=== PATIENT | female | born 1960 | race Caucasian/White ===

== ENCOUNTER 2019-11-09 21:03 | Inpatient (IN) | payer OTHER ==
[~2019-11-09] VITALS: Ht 167.6 cm; Wt 68.0 kg
[2019-11-09 21:05] VITALS: BP 219/106
[2019-11-09 21:55] LABS: ABSOLUTE NEUTROPHILS 5.4 thou/uL (1.4-8.2); BASOPHILS 1.2 % (0.0-2.0); EOSINOPHILS 1.5 % (0.0-3.0); HEMATOCRIT 45.5 % (37.0-47.0); HEMOGLOBIN 14.9 gm/dL (12.0-15.0); LYMPHOCYTES 36.4 % (24.0-44.0); MCH 29.5 pg (26.0-34.0); MCHC 32.7 g/dL (28.0-37.0); MCV 90.1 fL (80.0-100.0); MONOCYTES 5.4 % (1.0-8.0); PLATELET COUNT 275 thou/uL (150-400); POLYS 55.5 % (36.0-66.0); RBC 5.06 mil/uL (4.20-5.00); WBC 9.7 thou/uL (4.0-11.0)
[2019-11-09 22:13] LABS: ANION GAP 12 mmol/L (7-16); BUN 8 mg/dL (7-18); CALCIUM 9.9 mg/dL (8.5-10.1); CHLORIDE 103 mmol/L (98-107); CO2 27 mmol/L (21-32); CREATININE 0.9 mg/dL (0.6-1.0); GLUCOSE 112 mg/dL (74-106); POTASSIUM 3.1 mmol/L (3.5-5.1); SODIUM 142 mmol/L (136-145)
[2019-11-09 22:19] LABS: ALBUMIN 4.4 g/dL (3.4-5.0); SGOT 22 U/L (15-37); SGPT 25 U/L (30-65); TOTAL BILIRUBIN 0.6 mg/dL (<0.1-1.0); TROPONIN-I <0.06 ng/mL (<0.06)
--- NOTE | 2019-11-09 22:36 | NUR ---
SEIZURE PADS PLACED TO BEDRAILS
[2019-11-10 00:15] LABS: BE(vivo) 0.3 mmol/L (-2 to +3); HCO3 26.8 mmol/L (22.0-26.0); PCO2 50.3 mmHg (35.0-45.0); PO2 165.7 mmHg (80.0-100.0); pH 7.344 (7.360-7.450)
[2019-11-10 00:22] VITALS: BP 165/76
[2019-11-10 01:00] VITALS: BP 125/64
[2019-11-10 01:13] VITALS: BP 157/76
[2019-11-10] MEDS ORDERED: VERAPAMIL ER240 M1 PO (01:32)
[2019-11-10] MEDS ORDERED: OMEPRAZOLE40 MG PO (01:32)
[2019-11-10] MEDS ORDERED: TRAZODONE 150150 M1 PO (01:34)
[2019-11-10] MEDS ORDERED: WELLBUTRIN XL300 MG PO (01:37)
[2019-11-10] MEDS ORDERED: AZELASTINE137 MCG/0. SPRAY (01:39)
[2019-11-10] MEDS ORDERED: PROZAC20 M1 PO (01:45)
[2019-11-10 05:49] LABS: ANION GAP 7 mmol/L (7-16); BUN 9 mg/dL (7-18); CHLORIDE 105 mmol/L (98-107); CHOLESTEROL 192 mg/dL (<200); CO2 29 mmol/L (21-32); CREATININE 0.8 mg/dL (0.6-1.0); GLUCOSE 109 mg/dL (74-106); HDL CHOLESTEROL 48 mg/dL (>40); LDL CHOLESTEROL 132 mg/dL (<100); POTASSIUM 3.9 mmol/L (3.5-5.1); SODIUM 141 mmol/L (136-145); TRIGLYCERIDE 63 mg/dL (<150); TROPONIN-I <0.06 ng/mL (<0.06); VLDL 13 mg/dL (<40)
[2019-11-10 06:06] LABS: SERUM ASSESSMENT Clear
--- NOTE | 2019-11-10 08:19 | EKG ---
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 : 1960 Requested By: Elvia Bob Order Number: [id number] MD: Prosper Santoro Measurements Intervals [place] Rate: 67 P: 35 TN: 141 QRS: 43 QRSD: 97 T: 44 QT: 471 QTc: 498 Interpretive Statements Sinus rhythm Nonspecific ST depression Borderline prolonged QT interval No previous ECG available for comparison Electronically Signed On 11-10-2019 8:18:44 MANAGER [employer]ALITY COMPLIANCE by Prosper Santoro [email or web address] <ELECTRONICALLY SIGNED> By: Prosper Santoro MD, FAC 11/10/19 0818 05 05 Prosper Santoro MD, [facility] /EPI
--- NOTE | 2019-11-10 08:20 | EKG ---
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 : 1960 Requested By: Elvia Bob Order Number: [id number] MD: Prosper Santoro Measurements Intervals [place] Rate: 102 P: 27 OR: 144 QRS: 51 QRSD: 96 T: 51 QT: 407 QTc: 531 Interpretive Statements Sinus tachycardia Minimal ST depression, inferior leads Prolonged QT interval No previous ECG available for comparison Electronically Signed On 11-10-2019 8:19:39 [employer] by Prosper Santoro [email or web address] <ELECTRONICALLY SIGNED> By: Prosper Santoro MD, FAC 11/10/19 0819 29 29 Prosper Santoro MD, [facility] /EPI
--- NOTE | 2019-11-10 08:47 | NUR ---
PATIENT ARRIVED TO ROOM 216 AROUND 0045 AM ACCOMPANIED BY HER .DENIES CHEST PAIN AND SOB.NO SEIZURES NOTED.SIDERAILS PADDED.MONITOR SHOWS SR.POC CONTINUED.
[2019-11-10 09:09] VITALS: BP 157/76
[2019-11-10 16:00] VITALS: BP 140/78
--- NOTE | 2019-11-10 16:31 | NUR ---
Case opened to follow for dc planning. Pt was sleepy this am during our visit but orientedx4. Her spouse and dtr were at bedside. The pt was indep with gait and adl's prior to admission. She and her spouse report that they recently moved to this area from [place]. They are staying with their dtr Munira while they purchase a home. The pt's spouse was transfered to the [employer] in [place] from [place] and they both have ins through [facility]. They had an issue on 09-28-2019 with the pt not showing up as active and he is working with his HR dept to resolve this. The pt should show active retro to the first of the year within the next 10 days. Cards copied and faxed to admitting. A copy was placed on the chart. Good rx coupon card provided for scripts. They will be buying a house in [facility] and finding a pcp in that area. No other cm interventions indicated at this time. Will follow along should dc needs arise.
[2019-11-10 20:30] VITALS: BP 132/52
[2019-11-11 00:45] VITALS: BP 96/51
[2019-11-11 04:30] VITALS: BP 97/55
[2019-11-11 07:30] VITALS: BP 124/63
[2019-11-11 11:41] LABS: HEMATOCRIT 38.6 % (37.0-47.0); MCH 29.9 pg (26.0-34.0); MCHC 32.7 g/dL (28.0-37.0); MCV 91.2 fL (80.0-100.0); RBC 4.23 mil/uL (4.20-5.00); RDW 13.8 % (10.5-14.5); WBC 5.2 thou/uL (4.0-11.0)
[2019-11-11 11:42] LABS: HEMOGLOBIN 12.6 gm/dL (12.0-15.0)
[2019-11-11 11:47] LABS: CALCIUM 8.5 mg/dL (8.5-10.1); CREATININE 0.8 mg/dL (0.6-1.0); POTASSIUM 4.1 mmol/L (3.5-5.1)
[2019-11-11 13:00] VITALS: BP 125/65
[2019-11-11] MEDS ORDERED: DIVALPROEX SOD500 M1 PO (14:19)
[2019-11-11] MEDS ORDERED: ASPIR 8181 MG PO (14:19)
[2019-11-11 14:51] VITALS: BP 124/63
--- NOTE | 2019-11-11 15:08 | EEG ---
[facility] [place] [address] ELECTROENCEPHALOGRAM Name: DAISY NETTLES Room #: 216-P ADM IN M.R.#: [id number] Admission: 11/10/19 Attend Phys: Michael Hastings MD Discharge: Date of : 56 Report #: [id number] THIS REPORT FOR: //name// CC: FAM physician/PCP Michael Hastings DATE OF SERVICE: 11/10/2019 This patient is being evaluated for the possibility of seizure. EEG was done by placing the electrode by standard 10-20 system of electrode placement. Both referential and sequential montages were used for recording. Background activity appeared to be about 10 Hz and 30 microvolt. The patient went to sleep and that was associated with bilateral slowing and vertex sharp waves. Photic stimulation is unremarkable. Throughout the record, no active epileptiform activity was noticed. IMPRESSION: This patient's EEG demonstrated some intermixed slowing, which is a nonspecific finding, but no active epileptiform activity was noticed. Thank you very much for this referral. It might be mentioned EEG can be normal in a significant percentage of the patient with seizure disorder. <ELECTRONICALLY SIGNED> By: Favian Shaw MD 11/11/19 1508 [id number] 1752 Favian Shaw MD /nt
== END 2019-11-11 15:45 | disposition home or self-care (01) | DRG 101 ==
LOC: ER 21:03 → 2N 11-10 00:09 → EROBS 11-10 00:09 → 2N 11-10 00:37 → ENTRNSPT 11-11 15:34 → EDTRNSPTSTS 11-11 15:36 → 2N 11-11 15:45
PROVIDERS: Internal Medicine; Nurse Practitioner Family; Physician Assistant; ADMIT Internal Medicine
DX: G40.409 Other generalized epilepsy and epileptic syndromes, not intractable, without status epilepticus (principal); R07.89 Other chest pain; E78.00 Pure hypercholesterolemia, unspecified; I10 Essential (primary) hypertension; E87.6 Hypokalemia; E78.5 Hyperlipidemia, unspecified; K21.9 Gastro-esophageal reflux disease without esophagitis; F32.9 Major depressive disorder, single episode, unspecified; J42 Unspecified chronic bronchitis; G47.00 Insomnia, unspecified; R94.31 Abnormal electrocardiogram [ECG] [EKG]; R29.6 Repeated falls; Z79.899 Other long term (current) drug therapy; Z80.8 Family history of malignant neoplasm of other organs or systems
CPT/HCPCS: 10081